=== PATIENT | male | born 2000 | race Caucasian/White ===

== ENCOUNTER 2022-02-01 14:05 | Emergency (ER) | payer OTHER ==
[~2022-02-01] VITALS: Ht 170.2 cm; Wt 90.9 kg
[2022-02-01] MEDS ORDERED: IV NORMAL SALINE 1000ML BAG 1,000 ML IV ONE (14:15)
--- NOTE | 2022-02-01 14:22 | PHYS DOC ---
Adult General Chief Complaint Chief Complaint: OVERDOSE HPI HPI The patient is a 21-year-old male who is otherwise healthy. He presents after a witnessed fentanyl overdose. Was at a [employer] and snorted a small round blue pill. Girlfriend then witnessed him becoming unresponsive. EMS were called. Upon arrival patient was obtunded with pinpoint pupils and agonal he breathing. He was administered intranasal and then IV Narcan. After 1.5 mg of IV Narcan patient became awake and alert. Blood glucose was elevated during transport but vital signs were appropriate. Patient is alert and oriented upon arrival, denying complaints. He denies co-ingestions or use of alcohol. States the drug use was recreational and denies any suicidal ideation. Review of Systems Review of Systems A 12 point review of systems was completed and was negative except where noted in HPI above. Current Medications Current Medications Current Medications Medications (Trade) Dose Ordered Sig/Susana Start Time Stop Time Status Last Admin Dose Admin Albuterol Sulfate (Ventolin Neb Soln) 2.5 mg STK-MED ONCE 02/01/22 15:00 02/01/22 15:00 DC Sodium Chloride 1,000 ml @ 1,000 mls/hr 1X ONCE 02/01/22 14:15 02/01/22 15:14 DC 02/01/22 14:48 1,000 MLS/HR Allergies Allergies Allergies Coded Allergies Type Severity Reaction Last Updated Verified No Known Drug Allergies 02/01/22 No Physical Exam Physical Exam 21-year-old male appearing nontoxic and in no acute distress. Head is normocephalic and atraumatic. Neck is supple and nontender. Oropharynx is moist. Lungs are clear to station. There is a normal S1 and S2 without rubs or gallops and capillary refill is appropriate, less than 2 seconds globally. Abdomen is soft, nontender nondistended. Skin is warm and dry without cyanosis, clubbing or edema. Psychiatrically, the patient demonstrates appropriate mood and affect and is alert. Neurologically, patient moves all extremities equally, is alert and oriented x4 no lateralizing deficits are seen. Current Patient Data Vital Signs Vital Signs Date Time Temp Pulse Resp B/P (MAP) Pulse Ox O2 Delivery O2 Flow Rate FiO2 02/01/22 17:27 63 16 93 02/01/22 14:11 97.6 130/75 (93) Room Air 98.0 97.6 Lab Values Laboratory Tests Test 02/01/22 14:48 02/01/22 16:00 Urine Opiates Screen Neg (NEG) Urine Methadone Screen Neg (NEG) Urine Barbiturates Neg (NEG) Urine Phencyclidine Screen Neg (NEG) Urine Amphetamine/Methamphetamine Neg (NEG) Urine Benzodiazepines Screen Neg (NEG) Urine Cocaine Screen Neg (NEG) Urine Cannabinoids Screen Pos (NEG) Urine Ethyl Alcohol Neg (NEG) White Blood Count 20.7 x10^3/uL (4.0-11.0) H Red Blood Count 4.81 x10^6/uL (4.30-5.70) Hemoglobin 14.4 g/dL (13.0-17.5) Hematocrit 41.8 % (39.0-53.0) Mean Corpuscular Volume 87 fL (79-100) Mean Corpuscular Hemoglobin 30 pg (25-35) Mean Corpuscular Hemoglobin Concent 35 g/dL (31-37) Red Cell Distribution Width 13.0 % (11.5-14.5) Platelet Count 237 x10^3/uL (140-400) Neutrophils (%) (Auto) 91 % (31-73) H Lymphocytes (%) (Auto) 4 % (24-48) L Monocytes (%) (Auto) 5 % (0-9) Eosinophils (%) (Auto) 0 % (0-3) Basophils (%) (Auto) 0 % (0-3) Neutrophils # (Auto) 18.7 x10^3/uL (1.8-7.7) H Lymphocytes # (Auto) 0.9 x10^3/uL (1.0-4.8) L Monocytes # (Auto) 1.0 x10^3/uL (0.0-1.1) Eosinophils # (Auto) 0.1 x10^3/uL (0.0-0.7) Basophils # (Auto) 0.0 x10^3/uL (0.0-0.2) Segmented Neutrophils % 68 % (35-66) H Band Neutrophils % 24 % (0-9) H Lymphocytes % 1 % (24-48) L Monocytes % 5 % (0-10) Eosinophils % 1 % (0-5) Metamyelocytes % 1 % (0-0) H Platelet Estimate Adequate (ADEQUATE) Sodium Level 142 mmol/L (136-145) Potassium Level 3.8 mmol/L (3.5-5.1) Chloride Level 103 mmol/L (98-107) Carbon Dioxide Level 27 mmol/L (21-32) Anion Gap 12 (6-14) Blood Urea Nitrogen 14 mg/dL (8-26) Creatinine 1.3 mg/dL (0.7-1.3) Estimated GFR (Cockcroft-Gault) 70.4 BUN/Creatinine Ratio 11 (6-20) Glucose Level 134 mg/dL (70-99) H Calcium Level 8.5 mg/dL (8.5-10.1) Total Bilirubin 0.3 mg/dL (0.2-1.0) Aspartate Amino Transferase (AST) 38 U/L (15-37) H Alanine Aminotransferase (ALT) 76 U/L (16-63) H Alkaline Phosphatase 106 U/L (46-116) Total Protein 6.9 g/dL (6.4-8.2) Albumin 4.1 g/dL (3.4-5.0) Albumin/Globulin Ratio 1.5 (1.0-1.7) Salicylates Level 0.6 mg/dL (2.8-20.0) L Salicylate Last Dose Date Unknown Salicylate Last Dose Time Unknown Acetaminophen Level < 2.0 mcg/ml (10-30) L Acetaminophen Last Dose Date Unknown Acetaminophen Last Dose Time Unknown Ethyl Alcohol Level < 10 mg/dL (0-10) Laboratory Tests 02/01/22 16:00 Laboratory Tests 02/01/22 16:00 EKG EKG Sinus rhythm, rate 73, no acute ST elevation or depression, sinus arrhythmia, NC 138, QRS 92, QTc 4 7, EP interpretation. Nonischemic tracing, intervals appropriate. Radiology/Procedures Radiology/Procedures [] Course & Med Decision Making Course & Med Decision Making 21-year-old male presenting after an overdose of counterfeit oxycodone which he knew to be fentanyl. Insufflated the drug. Resting comfortably after Narcan given in the field. Plan for basic labs and toxicology studies and will observe the patient for multiple hours to ensure that he does not re-sedate. If he remains alert and oriented and work-up is reassuring, anticipate discharge. He understands and agrees. 1730: Mr. Muñoz is resting very comfortably on serial reassessments. Has not sedated. Alert and oriented x4, ambulatory with a narrow, steady gait here in the emergency department and demonstrates appropriate judgment. Feels ready to go home. Has been observed uneventfully for almost 4 hours here in the ED. Labs unremarkable aside from white count of 20,000, likely stress demargination given near respiratory arrest prehospital. No evidence of any acute infectious process. Patient feels well and denies any complaints. Denies pain anywhere. Will discharge home. Patient is to follow closely with primary care, and understands that if he feels worse instead of better or develops other new symptoms of concern that he should return to the emergency department immediately for reevaluation. Questions were answered. Critical care time was 42 minutes for severe opiate overdose requiring antidote medication. Dragon Disclaimer Dragon Disclaimer This electronic medical record was generated, in whole or in part, using a voice recognition dictation system. Departure Departure Impression: Primary Impression: Opiate overdose Disposition: HOME / SELF CARE / HOMELESS Condition: IMPROVED Patient Instructions: Narcotic Overdose Additional Instructions: Follow-up very closely with your primary care doctor in the office in the next 2 to 4 days for reevaluation of your symptoms and to discussion of next best steps in care. Drink plenty of fluids to stay hydrated and get plenty of rest. Do not use illegal drugs to reduce very serious risks to your health. Return to the emergency department right away for worsening symptoms of any kind or with any other new symptoms of concern. Problem Qualifiers Primary Impression: Opiate overdose Encounter type: initial encounter Injury intent: accidental or unintentional Qualified Codes: T40.601A - Poisoning by unspecified narcotics, accidental (unintentional), initial encounter ALAINA FUNEZ MD Feb 01, 2022 14:22
[2022-02-01] MEDS ORDERED: ALBUTEROL SULFATE 2.5 MG/3 ML NEBU. ONE (15:00)
[2022-02-01 15:08] LABS: BARBITURATES NEG (NEG); BENZODIAZEPINES NEG (NEG); CANNABINOIDS POS (NEG); COCAINE NEG (NEG); METHADONE NEG (NEG); OPIATES NEG (NEG); PHENCYCLIDINE NEG (NEG)
[2022-02-01 15:09] LABS: AMPHETAMINE/METHAMPHETAMINE NEG (NEG)
[2022-02-01 16:10] LABS: BASO % 0 % (0-3); EOS # 0.1 x10^3/uL (0.0-0.7); EOS % 0 % (0-3); HEMATOCRIT 41.8 % (39.0-53.0); HEMOGLOBIN 14.4 g/dL (13.0-17.5); LYMPH # 0.9 x10^3/uL (1.0-4.8); LYMPH % 4 % (24-48); MEAN CORPUSCULAR HEMOGLOBIN 30 pg (25-35); MEAN CORPUSCULAR HGB CONC 35 g/dL (31-37); MEAN CORPUSCULAR VOLUME 87 fL (79-100); MONO % 5 % (0-9); NEUT # 18.7 x10^3/uL (1.8-7.7); NEUT % 91 % (31-73); PLATELET COUNT 237 x10^3/uL (140-400); RED BLOOD COUNT 4.81 x10^6/uL (4.30-5.70); WHITE BLOOD COUNT 20.7 x10^3/uL (4.0-11.0)
[2022-02-01 16:30] LABS: CALCIUM 8.5 mg/dL (8.5-10.1); CREATININE 1.3 mg/dL (0.7-1.3); GFR 70.4; POTASSIUM 3.8 mmol/L (3.5-5.1)
[2022-02-01 16:36] LABS: ACETAMIN < 2.0 mcg/ml (10-30); ALBUMIN 4.1 g/dL (3.4-5.0); ALBUMIN/GLOBULIN RATIO 1.5 (1.0-1.7); SALIC 0.6 mg/dL (2.8-20.0); TOTAL BILIRUBIN 0.3 mg/dL (0.2-1.0); TOTAL PROTEIN 6.9 g/dL (6.4-8.2)
[2022-02-01 16:37] LABS: ETHANOL < 10 mg/dL (0-10)
[2022-02-01 17:13] LABS: % BANDS 24 % (0-9); % EOS 1 % (0-5); % LYMPHS 1 % (24-48); % METAS 1 % (0-0); % MONOS 5 % (0-10); % SEGS 68 % (35-66)
[2022-02-01 17:14] LABS: PLT ESTIMATE ADEQUATE (ADEQUATE)
[2022-02-01 17:27] VITALS: BP 105/52
== END 2022-02-01 17:56 | disposition home or self-care (01) ==
LOC: ER 14:05
DX: T40.601A Poisoning by unspecified narcotics, accidental (unintentional), initial encounter (principal); Y92.89 Other specified places as the place of occurrence of the external cause
CPT/HCPCS: 36415; 80053; 80307; 80329; 85007; 85025; 96360; 99285; G0480; J7030